=== PATIENT | male | born 1945 | race Caucasian/White ===

== ENCOUNTER 2021-02-10 18:52 | Emergency (ER) | payer OTHER, SELFPAY ==
[2021-02-10 18:57] VITALS: BP 115/56; PULSE 79; RESP 22; TEMP 37.2; O2SAT 97; BMI 27.9
--- NOTE | 2021-02-10 19:23 | ED.WOUNDLAC ---
HPI - Wound/Laceration General Chief Complaint: Wound/Laceration Stated Complaint: Gash On Lt Leg,Needs Stitches Time Seen by Provider: 02/10/21 19:13 Source: patient Mode of arrival: Family Vehicle Limitations: no limitations History of Present Illness HPI narrative: 75M daily smoker presents with a friend and a chief complaint of a ground level fall in which she fell forward into edge of a concrete retaining wall. In doing so he suffered long irregular laceration on his anterior left lower extremity. His tetanus has been out of date for many years. He tore the skin and has some bleeding and pain which is controlled with a dressing. He denies other injuries such as head, neck or back pain. He denies prodromal symptoms such as dizziness, weakness or lightheadedness. No fever or chills. He states the pain increases with ambulation improves with rest Related Data Previous Rx's Medication Instructions Recorded cephalexin 500 mg PO BID #10 cap 02/10/21 Allergies Allergy/AdvReac Type Severity Reaction Status Date / Time No Known Drug Allergies Allergy Verified 02/10/21 18:57 Review of Systems Constitutional Constitutional: Denies chills, Denies fatigue, Denies fever(s), Denies frequent falls, Denies lethargy and Denies weakness Eyes Eyes: Denies change in vision, Denies eye discharge, Denies irritation and Denies loss of vision ENT Ears, Nose, Mouth, and Throat: Denies change in voice, Denies dizziness, Denies neck pain, Denies sore throat and Denies throat swelling Cardiovascular Cardiovascular: Denies chest pain, Denies irregular heart rhythm, Denies lightheadedness, Denies palpitations, Denies dyspnea, Denies dyspnea on exertion and Denies orthopnea Respiratory Respiratory: Denies cough, Denies dyspnea, Denies dyspnea on exertion and Denies wheezing Gastrointestinal Gastrointestinal: Denies abdominal pain, Denies change in bowel habits, Denies diarrhea, Denies nausea and Denies vomiting Musculoskeletal Musculoskeletal: Denies neck pain and Denies numbness Integumentary/Breasts Skin/Breast: Denies pruritus, Denies erythema, Denies rash and Reports wounds Neurologic Neurologic: Denies behavioral changes, Denies confusion, Denies dizziness, Denies frequent falls, Denies loss of vision, Denies numbness and Denies weakness Psychiatric Psychiatric: Denies anxiety, Denies behavioral changes, Denies confusion, Denies depression, Denies homicidal ideation and Denies suicidal ideation Endocrine Endocrine: Denies fatigue, Denies flushing and Denies palpitations Hematologic/Lymphatic Hematologic/Lymphatic: Denies easy bruising Allergic/Immunologic Allergic/Immunologic: Denies urticaria, Denies throat swelling and Denies wheezing Patient History Social History Smoking Status: Current every day smoker Smoking Status: Current every day smoker tobacco type: cigarettes alcohol intake frequency: 0-2 drinks per day Substance Use Type: does not use Exam Narrative Exam Narrative: GEN: AOx3 and in mild distress EYES: Pupils are equal, round, and reactive to light and accommodation. Extraoccular muscles are intact bilaterally. There is no subconjunctival hemorrhage or exudate. CHEST: Lungs are clear to auscultation bilaterally and free of wheezes, rales, or rhonchi. Heart rate is regular rhythm, there are no murmurs, clicks, rubs, or gallops. There is no chest wall tenderness. ABD: Abdomen is soft and nontender. There is no guarding or rebound. Bowel sounds are normal in all 4 quadrants. There is no mass or organomegaly. EXT: Full painless ROM of all extremities with no loss of sensation or strength. 10 cm irregular laceration on anterior of left lower extremity with minimal bleeding. No obvious foreign body, deep structures intact, no fascial involvement SKIN: Warm, pink, and dry. No erythema or rash Initial Vital Signs Initial Vital Signs: Vital Signs Temperature 99.0 F 02/10/21 18:57 Pulse Rate 79 02/10/21 18:57 Respiratory Rate 22 02/10/21 18:57 Blood Pressure 115/56 L 02/10/21 18:57 Pulse Oximetry 97 02/10/21 18:57 Procedures Laceration Repair Laceration 1: Site: lower extremity Side (If applicable): left Size (cm): 10 Description: irregular Depth: involves muscle layer Local Anesthetic: lidocaine 1% and with bicarb Amount of anesthesia used (mL): 9 Pre-repair: wound explored, irrigated extensively and deep structures intact Skin layer closed with: nylon Size (cm): 3-0 Number of sutures: 10 Technique: simple, interrupted and horizontal mattress Subcutaneous layer closed with: vicryl Size: 4-0 Number of sutures: 2 Technique: simple, interrupted Course Orders Ordered: Discontinued Medications Bacitracin (Bacitracin Oint 0.9 Gm Pckt) 2 applic TOP NOW ONE Stop: 02/10/21 19:58 Last Admin: 02/10/21 21:20 Dose: 2 applic Documented by: CANDIDO Diphtheria/Tetanus/Acell Pertussis (Tet,Diph,Pertuss(Acell),Vac/Pf 0.5 Ml Syringe) 0.5 ml IM .ONCE ONE Stop: 02/10/21 19:06 Last Admin: 02/10/21 19:47 Dose: 0.5 ml Documented by: CANDIDO Lidocaine/Sodium Bicarbonate (Lido 1%/Sod Bicarb 8.4% (10ml) 10 Ml Syringe) 10 ml INJ NOW ONE Stop: 02/10/21 19:52 Last Admin: 02/10/21 21:15 Dose: 10 ml Documented by: CANDIDO Vital Signs Vital signs: Vital Signs - 8 hr 02/10/21 18:57 Temperature 99.0 F Pulse Rate 79 Respiratory Rate 22 Blood Pressure 115/56 L Pulse Oximetry 97 Discharge Plan Departure Patient Disposition: Home Clinical Impression: Laceration Instructions: How to Care for a Laceration After Repair, DI for Laceration Repair Activity Restrictions/Additional Instructions: *You have been diagnosed with [left leg complex laceration] *What to do: *Please continue to take your regular medications as directed. [ ] New medication prescriptions sent to your pharmacy: [ ] [ x] New medication written as a paper prescription [ ] No new medications given *Please follow up with your primary care provider in 2-3 days, call for an appointment. Let them know you were seen in the Emergency Department and that we ask that you be seen in follow up. We will electronically transmit a record of today's note if your PCP is in our system *If you do not have a primary care provider please contact the [facility] Resource line at [phone]. They will ask some questions about your medical history and help get you set up with a doctor in the community. *Return to Emergency Department if you should have any new, worsening or concerning symptoms, such as [fever greater than 101 F, shaking chills, worsening pain, persistent vomiting or other bothersome symptoms] Please keep the wound clean and dry to the best of your ability. Please monitor for signs of infection such as redness to the skin or increasing pain. Have the sutures removed by your doctor in about 7 days. If you are unable to get into your doctor, we would be happy to remove the sutures in that same timeframe. Prescriptions: New cephalexin 500 mg capsule 500 mg PO BID Qty: 10 RF: 0 Referrals: Nathanael Stringer MD [Primary Care Provider] -
[2021-02-10] MEDS: TET,DIPH,PERTUSS(ACELL),VAC/PF 0.5 ML SYRINGE IM (19:47)
[2021-02-10] MEDS: LIDO 1%/SOD BICARB 8.4% (10ML) 10 ML SYRINGE INJ (21:15)
[2021-02-10] MEDS: BACITRACIN OINT 0.9 GM PCKT 2 APPLIC TOP (21:20)
== END 2021-02-10 21:52 | disposition home or self-care (01) ==
PROVIDERS: Emergency Provider Emergency Medicine; PCP Internal Medicine
DX: S81.812A Laceration without foreign body, left lower leg, initial encounter (principal); W19.XXXA Unspecified fall, initial encounter; Z23 Encounter for immunization
CPT/HCPCS: 13121; 13122; 90471; 99283; 90715